=== PATIENT | female | born 1960 | race Caucasian/White ===

== ENCOUNTER 2018-03-29 09:03 | Emergency (ER) | payer OTHER, SELFPAY ==
[2018-03-29 09:05] VITALS: BP 151/89; PULSE 85; RESP 14; TEMP 36.6; O2SAT 97
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
[2018-03-29 09:38] VITALS: BP 151/89
[2018-03-29 09:40] VITALS: PULSE 80
[2018-03-29 09:58] VITALS: BP 155/87; PULSE 82; RESP 16; O2SAT 93
== END 2018-03-29 10:00 | disposition home or self-care (01) ==
PROVIDERS: Emergency Provider Emergency Medicine
DX: S83.92XA Sprain of unspecified site of left knee, initial encounter (principal); W22.8XXA Striking against or struck by other objects, initial encounter; Y99.0 Civilian activity done for income or pay
CPT/HCPCS: 99283

== ENCOUNTER → 2019-09-27 14:00 | Outpatient (ROUT) | payer OTHER, SELFPAY ==
[2019-09-28 14:07] LABS: COVID19 Sendout Not Detected (Not Detect)
== END ==
PROVIDERS: Visit Provider Internal Medicine
DX: Z11.59 Encounter for screening for other viral diseases (principal); J32.9 Chronic sinusitis, unspecified
CPT/HCPCS: 87635